=== PATIENT | male | born 1950 | race Caucasian/White ===

== ENCOUNTER 2018-09-09 08:37 | Inpatient (IN) | payer MEDICARE ==
[2018-09-09] VITALS (18 sets, daily range): BP systolic 101–163; BP diastolic 52–84; BMI 25.6
[~2018-09-09] VITALS: Ht 165.1 cm; Wt 65.9 kg
[2018-09-09] MEDS ORDERED: OMEPRAZOLE40 MG PO (08:57)
[2018-09-09] MEDS ORDERED: NORVASC5 MG PO (08:58)
[2018-09-09] MEDS ORDERED: VITAMIN B-121000 MCG PO (08:58)
[2018-09-09] MEDS ORDERED: GLYBURIDE5 M1 PO (08:58)
[2018-09-09] MEDS ORDERED: TRESIBA FL100 UNIT/1 SQ (08:59)
[2018-09-09] MEDS ORDERED: ACCUPRIL20 MG PO (08:59)
[2018-09-09] MEDS ORDERED: HCTZ25 MG PO (09:00)
[2018-09-09] MEDS ORDERED: BAYER CHEWABLE81 MG (09:00)
[2018-09-09] MEDS ORDERED: LIPITOR20 MG PO (09:00)
[2018-09-09] MEDS ORDERED: PLAVIX75 MG PO (09:00)
[2018-09-09] MEDS ORDERED: GLUCOPHAGE1000 MG PO (09:00)
[2018-09-09] MEDS ORDERED: VIAGRA100 MG PO (09:01)
[2018-09-09 09:43] LABS: MCH 29.6 pg (26.0-34.0); MCHC 32.7 g/dL (31.0-37.0); MCV 90.7 fL (80.0-100.0); MEAN PLATELET VOLUME 9.2 fL (7.4-10.4); RBC 2.16 10x6/uL (4.20-6.10); RDW 13.6 % (11.5-14.5); WBC 5.1 10x3/uL (4.8-10.8)
[2018-09-09 10:00] LABS: ALBUMIN 2.8 g/dL (3.4-5.0); ALKALINE PHOSPHATASE 73 U/L (46-116); ALT (SGPT) 19 U/L (10-68); BILIRUBIN - TOTAL 0.36 mg/dL (0.2-1.3); CALC OSMOLALITY 297 mosm/kg (275-300); CALCIUM 8.2 mg/dL (8.5-10.1); CHLORIDE - SERUM 103 mmol/L (98-107); CREATININE - SERUM 0.9 mg/dL (0.6-1.3); POTASSIUM - SERUM 4.3 mmol/L (3.5-5.1); PROTEIN - SERUM 5.4 g/dL (6.4-8.2); SODIUM 139 mmol/L (136-145); UREA NITROGEN 29 mg/dL (7-18); eGFR NON AFRICAN AMERICAN 89 mL/min (90-120)
[2018-09-09 10:01] LABS: GLUCOSE 359 mg/dL (74-106)
[2018-09-09 10:15] LABS: HEMATOCRIT 19.6 % (42.0-54.0); HEMOGLOBIN 6.4 g/dL (13.5-17.5); PLATELET COUNT 88 10x3/uL (130-400)
[2018-09-09 11:23] LABS: ANISOCYTOSIS OCC; HYPOCHROMASIA 1+; LYMPHOCYTES 5 % (15-50); MONOCYTES 4 % (2-11); NEUTROPHILS 87 % (40-80); PLATELET ESTIMATE DECREASED
--- NOTE | 2018-09-09 11:27 | NUR ---
PT ARRIVED TO UNIT AROUND 1100. CAME FROM ER. HAD CT SCAN BEFORE HE COME TO UNIT. LARGE AMOUNT OF RED BLOODY STOOL NOTED. PERICARE CARE AND CLEAN LINENS PROVIDED. CONNECTED TO TELEMETRY. BLOOD CONSENT SIGNED. VOICE AT BEDSIDE AT THIS TIME. WILL CONTINUE TO MONITOR.
--- NOTE | 2018-09-09 11:41 | NUR ---
1ST UNIT OF PRBC'S INFUSING AT THIS TIME. FAMILY AT BEDSIDE.
--- NOTE | 2018-09-09 12:50 | NUR ---
PT TRANSFERRED TO NUCLEAR MEDICINE FOR BLEEDING SCAN. NURSE ACCOMPANIED PT DUE TO BLOOD TRANSFUSION.
--- NOTE | 2018-09-09 14:10 | NUR ---
PT BACK IN ROOM. RE-CONNECTED TO [employer] INSTRUMENTS TUBE BENDER. CONTINUES ON ROOM AIR. WILL CONTINUE TO MONITOR.
--- NOTE | 2018-09-09 15:48 | NUR ---
BLOOD GLUCOSE 224. 8 UNITS OF HUMALOG GIVEN PER SLIDING SCALE. EXTRA BLANKET PROVIDED. PT DENIES OTHER NEEDS AT THIS TIME. WILL CONTINUE TO MONITOR.
--- NOTE | 2018-09-09 16:55 | NUR ---
CLEAR LIQUID TRAY DELIVERED. UP TO BEDSIDE COMMODE. LARGE AMOUNT OF MARROON RED STOOL NOTED. SECOND UNIT OF BLOOD ALMOST FINISHED. GO LITELY IN ROOM. PT INSTRUCTED TO DRINK MUCH HE CAN TO PREP FOR COLONOSCOPY.
--- NOTE | 2018-09-09 17:43 | NUR ---
3RD UNIT OF BLOOD INFUSING AT THIS TIME. RESTING COMFORTABLY. WILL CONTINUE TO MONITOR.
--- NOTE | 2018-09-09 17:58 | NUR ---
DR. MANN CALLED TO VERIFY INSULIN ORDERS. CONTINUE WITH HUMALOG AND DC HUMULIN REG.
--- NOTE | 2018-09-09 18:17 | NUR ---
CONSENT FORMS SIGNED FOR COLONOSCOPY. SPOUSE AT BEDSIDE. CONSENT FORMS PLACED IN CHART. SCD'S APPLIED TO LE PER ORDERS. RESTING COMFORTABLY. WILL CONTINUE TO MONITOR.
--- NOTE | 2018-09-09 18:47 | NUR ---
UP TO BEDSIDE COMMODE. SMALL AMOUNT OF MARROON/RED STOOL NOTED.
--- NOTE | 2018-09-09 19:15 | NUR ---
REPORT RECEIVED, INITIAL ASSESSMENT COMPLETE PER FLOW SHEET, PT AAOx4, ANSWERES ALL QUESTIONS AND ABLE TO MAKE NEEDS KNOWN, PT SUPINE IN BED, HOB ELEVATED, MOVES ALL EXTREMITIES WITH PURPOSE EQUALY BILAT, BILAT 20g PIV'S IN BILAT FA, PRBC INFUSING IN LEFT FA, PT PERIODICALY SINUS TACH WITH INCREASED MOVEMENT, RETURNS TO NSR WHEN RESTING, PVC'S NOTED, OTHER VSS, PT HAS GI PREP ON BEDSIDE TABLE, ASSISTING TO POOR GI PREP FOR PT INTO CUP, PT DENIES PAIN OR NEEDS AT THIS TIME, WILL CONTINUE TO MONITOR
--- NOTE | 2018-09-09 20:36 | NUR ---
PT UP OOB TO BEDSIDE COMMODE, 700 ML LIQUID BLOODY STOOL, PT AAOx4, ASSISTED BACK TO BED, LINENS CHANGED, VSS, WILL CONTINUE TO MONITOR
[2018-09-09 21:58] LABS: HEMATOCRIT 31.9 % (42.0-54.0); HEMOGLOBIN 10.7 g/dL (13.5-17.5)
[2018-09-09 22:01] LABS: INR 1.14 (0.85-1.17)
--- NOTE | 2018-09-09 23:00 | NUR ---
REASSESSMENT COMPLETE PER FLOW SHEET, NO ACUTE CHANGE NOTED, PT FINISHED GI PREP, DENIES PAIN OR NEEDS AT THIS TIME, VSS, WILL CONTINUE TO MONITOR
[2018-09-10] VITALS (20 sets, daily range): BP systolic 101–145; BP diastolic 34–96; BMI 27.6
--- NOTE | 2018-09-10 01:00 | NUR ---
PT UP TO BEDSIDE COMMODE, SMALL LIQUID BROWN BM WITH YELLOW VOID, PT DENIES PAIN OR NEEDS AT THIS TIME, COMPLETE LINEN CHANGE, VSS, WILL CONTINUE TO MONITOR
--- NOTE | 2018-09-10 03:00 | NUR ---
REASSESSMENT COMPLETE SEE FLOW SHEET, PT DENIES PAIN OR NEEDS, AAOx4 SLEEPING COMFORTABLY, MEDS INFUSING PER MAR/ORDERS, VSS, NPO PER ORDERS, WILL CONTINUE TO MONITOR
[2018-09-10 04:26] LABS: BASOPHILS 0.1 % (0-2); EOSINOPHILS 0.6 % (0-7); HEMOGLOBIN 10.1 g/dL (13.5-17.5); IMMATURE GRANULOCYTES 0.4 % (0-5); LYMPHOCYTES 19.5 % (15-50); MCH 30.1 pg (26.0-34.0); MCHC 33.7 g/dL (31.0-37.0); MCV 89.3 fL (80.0-100.0); MONOCYTES 8.4 % (2-11); PLATELET COUNT 78 10x3/uL (130-400); RDW 14.2 % (11.5-14.5)
[2018-09-10 04:40] LABS: RBC 3.36 10x6/uL (4.20-6.10); WBC 8.1 10x3/uL (4.8-10.8)
[2018-09-10 04:48] LABS: CALCIUM 7.6 mg/dL (8.5-10.1); CARBON DIOXIDE 28.5 mmol/L (21.0-32.0); CHLORIDE - SERUM 109 mmol/L (98-107); CREATININE - SERUM 0.8 mg/dL (0.6-1.3); SODIUM 145 mmol/L (136-145); eGFR NON AFRICAN AMERICAN > 90 mL/min (90-120)
[2018-09-10 04:49] LABS: CALC OSMOLALITY 285 mosm/kg (275-300); GLUCOSE 68 mg/dL (74-106); POTASSIUM - SERUM 3.4 mmol/L (3.5-5.1); UREA NITROGEN 11 mg/dL (7-18)
--- NOTE | 2018-09-10 05:00 | NUR ---
PT MORILLO SINCREASED CONCERNES ABOUT BLOOD SUGAR LEVELS DISCUSSED TX WITH PT WITH BEING NPO AND AND PROCEDURE TODAY, WILL CONTINUE TO MONITOR FSBG LEVELS, VSS, PT RESTING COMFORTABLY IN BED,
--- NOTE | 2018-09-10 05:15 | NUR ---
CALLED ICU, PASSWORD VERIFIED, UPDATE GIVEN, WOULD LIKE TO KNOW WHEN PT IS TO HAVE PROCEDURE, WILL NOTIFY ONCOMING RN ABOUT WANTING TO BE NOTIFIED, NO FURTHER QUESTIONS OR CONCERNS STATED AT THIS TIME, PT RESTING IN BED, VSS
--- NOTE | 2018-09-10 05:33 | NUR ---
PT STATED ERLIER IN SHIFT THAT WHEN HIS BLOOD SUGAR DROPS AROUND 60'S THAT HE IS DIFFICULT TO INCREASE BLOD GLUCOSE, WITH PENDING SURGERY TODAY AND FSBG @68 DISCUSSED WITH PT ABOUT CONTROL OF BLOOD GLUCOSE, PT NPO PER ORDERS, PT AGREES ON SC GLUCOSE CONTROL MED PER MAR, SEE MAR FOR FURTHER, PT AAOx4, VSS, WILL CONTINUE TO MONITOR
--- NOTE | 2018-09-10 07:00 | NUR ---
RECEIVED BEDSIDE REPORT ON PATIENT AND ASSUMED CARE. HEAD TO TOE ASSESSMENT COMPLETED. PATIENT RESTING QUIELTY IN BED. ALERT AND ORIENTED X 4. VSS.
--- NOTE | 2018-09-10 10:45 | NUR ---
DR. SPARKS IN ROOM, UPDATED AND EXAMINES PATIENT. PATIENTS AT BEDSIDE. VSS. ANSWERS QUESTIONS.
--- NOTE | 2018-09-10 11:26 | NUR ---
REASSESSMENT COMPLETE. PATIENT WATCHING TV, AT BEDSIDE, NO NEEDS AT THIS TIME. VSS. KCL INFUSION COMPLETED.
--- NOTE | 2018-09-10 13:29 | NUR ---
PREOP MEDS GIVEN PER MAR.
--- NOTE | 2018-09-10 15:07 | NUR ---
REASSESSMENT COMPLETED. GIVEN LEMON SWABS FOR MOUTH. VSS. WILL CONTINUE TO MONITOR.
--- NOTE | 2018-09-10 15:53 | NUR ---
GI LAB AT ROOM SETTING UP FOR COLONOSCOPY.
--- NOTE | 2018-09-10 16:53 | NUR ---
DR. JEFFERSON AT ROOM UPDATES DAUGHTER AND PATIENT ON PROCEDURE AND ANSWERS QUESTIONS. TO START REGULAR DIET AND TRANSFER TO FLOOR.
--- NOTE | 2018-09-10 17:24 | NUR ---
CALLED REPORT TO ADRYAN CABALLERO ON MED 3, WILL TRANSFER PATIENT TO ROOM 1213 ONCE DINNER IS COMPLETED.
--- NOTE | 2018-09-10 18:08 | NUR ---
PATIENT ATE 100% OF DINNER TRAY. TRANSPORTED TO ROOM 1213 VIA WHEELCHAIR. VSS.
--- NOTE | 2018-09-10 19:32 | NUR ---
THE PATIENT WAS LYING IN BED WHEN STAFF ENTERED HIS ROOM. BED IS IN THE LOW POSITION WITH SIDERAILS X2 AND CALL LIGHT WITHIN REACH. PATIENT WAS EDUCATED ON, AND DEMONSTRATED APPROPRIATE USE, OF A CALL LIGHT. THE PATIENT APPEARS COMFORTABLE WITH NO QUESTIONS OR CONCERNS AT THIS TIME.
[2018-09-11] VITALS: BP 127/51
--- NOTE | 2018-09-11 02:46 | NUR ---
THE PATIENT IS AWAKE AND TALKING TO STAFF. HE HAS NO QUESTIONS OR CONCERNS AT THIS TIME.
--- NOTE | 2018-09-11 03:17 | NUR ---
PATIENT WOKE AT 0209 WITH A FSBS OF 59. MILK, CRACKERS AND PEANUT BUTTER WERE GIVEN. FSBS AT 0317 WAS 191.
[2018-09-11 03:42] VITALS: BP 120/32; Ht 165.1 cm; Wt 65.9 kg
[2018-09-11 04:00] VITALS: BP 119/65
[2018-09-11 06:13] LABS: BASOPHILS 0.1 % (0-2); EOSINOPHILS 0.6 % (0-7); HEMATOCRIT 32.3 % (42.0-54.0); HEMOGLOBIN 10.5 g/dL (13.5-17.5); IMMATURE GRANULOCYTES 0.4 % (0-5); MCH 29.9 pg (26.0-34.0); MCHC 32.5 g/dL (31.0-37.0); MONOCYTES 6.1 % (2-11); NEUTROPHILS 82.8 % (40-80); RBC 3.51 10x6/uL (4.20-6.10); RDW 14.7 % (11.5-14.5); WBC 7.9 10x3/uL (4.8-10.8)
[2018-09-11 06:26] LABS: PLATELET COUNT 101 10x3/uL (130-400)
[2018-09-11 06:53] LABS: ALBUMIN 3.1 g/dL (3.4-5.0); ALKALINE PHOSPHATASE 92 U/L (46-116); CALCIUM 8.3 mg/dL (8.5-10.1); CARBON DIOXIDE 25.8 mmol/L (21.0-32.0); CHLORIDE - SERUM 105 mmol/L (98-107); CREATININE - SERUM 0.8 mg/dL (0.6-1.3); POTASSIUM - SERUM 3.6 mmol/L (3.5-5.1); PROTEIN - SERUM 6.2 g/dL (6.4-8.2); SODIUM 140 mmol/L (136-145); UREA NITROGEN 9 mg/dL (7-18); eGFR NON AFRICAN AMERICAN > 90 mL/min (90-120)
[2018-09-11 07:13] LABS: ALT (SGPT) 49 U/L (10-68); CALC OSMOLALITY 281 mosm/kg (275-300); GLUCOSE 177 mg/dL (74-106)
[2018-09-11 07:54] VITALS: BP 119/65
--- NOTE | 2018-09-11 08:00 | NUR ---
PT AAOX4 REQUESTING SOME UNSWEET TEA MADE AND BROUGHT TO PT AT THIS TIME, NO OTHER NEEDS EXPRESSED WILL CONTINUE TO MONITOR
[2018-09-11 12:23] VITALS: BP 151/69
[2018-09-11] MEDS ORDERED: ASPIRIN325 MG PO (13:28)
--- NOTE | 2018-09-11 14:31 | MORECARE ---
CASE MANAGEMENT DISCHARGE SUMMARY PATIENT: JS GONZALEZ UNIT: [id number] ADM DATE: 09/09/18 AGE: 68 : 51 SEX: M ROOM/BED: D.1213 AUTHOR: BHAVNA SINGH PHYSICIAN: REFERRING PHYSICIAN: BONITA MANN MD DATE OF SERVICE: 09/11/18 Discharge Plan Patient Name: JS GONZALEZ [facility] [facility] 1950 Planned Disposition: Home Anticipated Discharge Date: 09/11/18 Discharge Date: Expected LOS: 2 Initial Reviewer: [email or web address] Initial Review Date: 09/11/2018 Generated: 09/11/18 3:31 pm DCPIA - Discharge Planning Initial Assessment Updated by [email or web address]: Opal Olivares on 09/11/18 2:29 pm * Is the patient Alert and Oriented? Yes * How many steps to enter\exit or inside your home? 4w/rail * PCP Dr. Ivan Irene * Pharmacy [facility] [address] * Preadmission Environment Home with Family * ADLs Independent * Equipment Glucometer * List name and contact numbers for known caregivers / representatives who currently or will assist patient after discharge: Tammie Gonzalez, spouse, * Verbal permission to speak to the caregivers and representatives has been obtained from the patient. Yes * Community resources currently utilized None * Additional services required to return to the preadmission environment? No * Can the patient safely return to the preadmission environment? Yes * Has this patient been hospitalized within the prior 30 days at any hospital? No Patient Name: JS GONZALEZ Page [id number] at 1431 All edits/amendments must be made on the electronic document DICTATION DATE: 09/11/18 143 ELECTRICAL & INSTRUMENTATION SUPERVISOR: AVE 09/11/18 143 RPT#: [id number] DC DATE: STATUS: ADM IN [facility] [address] [place] [address] END OF REPORT
--- NOTE | 2018-09-11 14:42 | MORECARE ---
CASE MANAGEMENT DISCHARGE SUMMARY PATIENT: JS GONZALEZ UNIT: [id number] ADM DATE: 09/09/18 AGE: 68 : 51 SEX: M ROOM/BED: D.1213 AUTHOR: FRANCISCO,DOC PHYSICIAN: REFERRING PHYSICIAN: BONITA MANN MD DATE OF SERVICE: 09/11/18 Discharge Plan Patient Name: JS GONZALEZ Facility: [facility]:[place] : 1950 Planned Disposition: Home Anticipated Discharge Date: 09/11/18 Discharge Date: Expected LOS: 2 Initial Reviewer: [email or web address] Initial Review Date: 09/11/2018 Generated: 09/11/18 3:42 pm Comments DCP- Discharge Planning Updated by [email or web address]: Opal Olivares on 09/11/18 1:[address] Patient Name: JS GONZALEZ Admission Status: ER Accout number: [id number] Admission Date: 09-09-2018 : 1950 Admission Diagnosis:GASTROINTESTINAL HEMORRHAGE, UNSPECIFIED Attending: BONITA MANN Current LOS: 2 Anticipated DC Date: 09-11-2018 Planned Disposition: Home Primary Insurance: [employer] CHOICE PPO MCR ADVANT Discharge Planning Comments: CM met with patient about discharge planning / needs. Patient states he plans to discharge to home where he lives with his . States home environment is safe. Denies need for home health or other discharge planning needs at this time. States his will transport him home after she picks up their dog's medicine from [facility]. CM explained and served DC [facility]. CM will continue to follow and assist as needed with discharge planning / needs. Glassware Defect Repairer: Opal Olivares DCPIA - Discharge Planning Initial Assessment Updated by [email or web address]: Opal Olivares on 09/11/18 2:29 pm * Is the patient Alert and Oriented? Yes * How many steps to enter\exit or inside your home? 4w/rail * PCP Dr. Ivan Irene * Pharmacy [facility] [place] [address] * Preadmission Environment Home with Family * ADLs Independent * Equipment Glucometer * List name and contact numbers for known caregivers / representatives who currently or will assist patient after discharge: Tammie Gonzalez, spouse, * Verbal permission to speak to the caregivers and representatives has been obtained from the patient. Yes * Community resources currently utilized None * Additional services required to return to the preadmission environment? No * Can the patient safely return to the preadmission environment? Yes * Has this patient been hospitalized within the prior 30 days at any hospital? No Coverage Notice Reviewer: [email or web address] Marco A HallOpalrichy Olivares Notice Issued Date-Time: 09/11/2018 14:31 Notice Type: IM Discharge Notice Notice Delivered To: Patient Relationship to Patient: Self Jewelry Sales Associate Name: Delivery Method: HAND - Hand Delivered Giovanna Days: Prior Verbal Notification: Recipient Understood Notice: Yes Recipient Signature: Yes Med Rec Note Co-signed by Attending: Coverage Notice Comment: Last DP export: 09/11/18 1:31 pm Patient Name: JS GOZNALEZ Page [id number] at 1442 All edits/amendments must be made on the electronic document DICTATION DATE: 09/11/181441 FIRE PROTECTION EQUIPMENT TECHNICIAN: AVE 09/11/18 1442 RPT#: [id number] DC DATE: STATUS: ADM IN [facility] [address] [place] [address] END OF REPORT
--- NOTE | 2018-09-11 16:44 | NUR ---
IV DC WITH CATH INTACT, DC INSTRUCTIONS GIVEN FAMILY AT BEDSIDE PT VERABLIZES UNDERSTANDING, LEAVING VIA WHEELCHAIR VIA HOSPITAL STAFF VIA PRIVATE VECHILE IN STABLE CONDITION
--- NOTE | 2018-09-12 11:23 | MORECARE ---
CASE MANAGEMENT DISCHARGE SUMMARY PATIENT: JS GONZALEZ UNIT: [id number] ADM DATE: 09/09/18 AGE: 68 : 51 SEX: M ROOM/BED: D.1213 AUTHOR: FRANCISCO,DOC PHYSICIAN: REFERRING PHYSICIAN: BONITA MANN MD DATE OF SERVICE: 09/12/18 Discharge Plan Patient Name: JS GONZALEZ Facility: [facility]:[place] : 1950 Planned Disposition: Home Anticipated Discharge Date: 09/11/18 Discharge Date: 09/11/2018 Expected LOS: 2 Initial Reviewer: [email or web address] Initial Review Date: 09/11/2018 Generated: 09/12/18 12:23 pm Comments DCP- Discharge Planning Updated by [email or web address]: Opal Olivares on 09/11/18 1:[address] Patient Name: JS GONZALEZ Admission Status: ER Accout number: [id number] Admission Date: 09-09-2018 : 1950 Admission Diagnosis:GASTROINTESTINAL HEMORRHAGE, UNSPECIFIED Attending: BONITA MANN Current LOS: 2 Anticipated DC Date: 09-11-2018 Planned Disposition: Home Primary Insurance: [employer] CHOICE PPO MCR ADVANT Discharge Planning Comments: CM met with patient about discharge planning / needs. Patient states he plans to discharge to home where he lives with his . States home environment is safe. Denies need for home health or other discharge planning needs at this time. States his will transport him home after she picks up their dog's medicine from [facility]. CM explained and served DC [facility]. CM will continue to follow and assist as needed with discharge planning / needs. Clinical Evaluator: Opal Olivares DCPIA - Discharge Planning Initial Assessment Updated by [id number]: Opal Olivares on 09/11/18 2:29 pm * Is the patient Alert and Oriented? Yes * How many steps to enter\exit or inside your home? 4w/rail * PCP Dr. Ivan Irene * Pharmacy [facility] [address] * Preadmission Environment Home with Family * ADLs Independent * Equipment Glucometer * List name and contact numbers for known caregivers / representatives who currently or will assist patient after discharge: Tammie Gonzalez, spouse, * Verbal permission to speak to the caregivers and representatives has been obtained from the patient. Yes * Community resources currently utilized None * Additional services required to return to the preadmission environment? No * Can the patient safely return to the preadmission environment? Yes * Has this patient been hospitalized within the prior 30 days at any hospital? No Coverage Notice Reviewer: [email or web address] Marco A Olivares Notice Issued Date-Time: 09/11/2018 14:31 Notice Type: IM Discharge Notice Notice Delivered To: Patient Relationship to Patient: Self Textile Engineer Name: Delivery Method: HAND - Hand Delivered Giovanna Days: Prior Verbal Notification: Recipient Understood Notice: Yes Recipient Signature: Yes Med Rec Note Co-signed by Attending: Coverage Notice Comment: Last DP export: 09/11/18 1:42 pm Patient Name: JS GONZALEZ Page [id number] at 1123 All edits/amendments must be made on the electronic document DICTATION DATE: 09/12/181121 GIN OPERATOR: AVE 09/12/18 112 RPT#: [id number] DC DATE:09/11/18 STATUS: DIS IN [facility] [address] [place] [address] END OF REPORT
== END 2018-09-11 16:48 | disposition home or self-care (01) | DRG 393 ==
LOC: D.ER 08:37 → D.EDHOLD 09:46 → D.ICU 09:46 → D.M3 09-10 18:11
PROVIDERS: Family Medicine; Internal Medicine Gastroenterology; ADMIT Internal Medicine Nephrology; ATTEND Internal Medicine Nephrology
PROC: 0DBM8ZZ Excision of Descending Colon, Via Natural or Artificial Opening Endoscopic (ICD-10-PCS; principal; 2018-09-10 15:30)
DX: K64.1 Second degree hemorrhoids (principal); K57.91 Diverticulosis of intestine, part unspecified, without perforation or abscess with bleeding; D62 Acute posthemorrhagic anemia; I10 Essential (primary) hypertension; E11.9 Type 2 diabetes mellitus without complications; I25.10 Atherosclerotic heart disease of native coronary artery without angina pectoris; K63.5 Polyp of colon

== ENCOUNTER 2018-11-21 20:47 | Inpatient (IN) | payer MEDICARE, MEDICAID ==
[~2018-11-21] VITALS: Ht 165.1 cm; Wt 70.8 kg
[~2018-11-21 20:47] MED LIST: ACCUPRIL20 MG PO; ASPIRIN325 MG PO; BAYER CHEWABLE81 MG; GLUCOPHAGE1000 MG PO; GLYBURIDE5 M1 PO; HCTZ25 MG PO; LIPITOR20 MG PO; NORVASC5 MG PO; OMEPRAZOLE40 MG PO; PLAVIX75 MG PO; TRESIBA FL100 UNIT/1 SQ; VIAGRA100 MG PO; VITAMIN B-121000 MCG PO
--- NOTE | 2018-11-21 21:34 | NUR ---
PT GIVEN URINAL.
[2018-11-21 21:54] LABS: BASOPHILS 0.2 % (0-2); EOSINOPHILS 0.9 % (0-7); HEMATOCRIT 24.9 % (42.0-54.0); HEMOGLOBIN 8.3 g/dL (13.5-17.5); IMMATURE GRANULOCYTES 0.4 % (0-5); LYMPHOCYTES 8.6 % (15-50); MCH 28.5 pg (26.0-34.0); MCHC 33.3 g/dL (31.0-37.0); MCV 85.6 fL (80.0-100.0); MEAN PLATELET VOLUME 9.1 fL (7.4-10.4); NEUTROPHILS 82.9 % (40-80); RBC 2.91 10x6/uL (4.20-6.10); RDW 13.9 % (11.5-14.5); WBC 5.6 10x3/uL (4.8-10.8)
[2018-11-21 21:57] LABS: PLATELET COUNT 148 10x3/uL (130-400)
[2018-11-21 22:00] VITALS: BP 157/58
[2018-11-21 22:08] LABS: APPEARANCE CLEAR (CLEAR); BILIRUBIN NEGATIVE (NEGATIVE); COLOR YELLOW (YELLOW); GLUCOSE 250 mg/dL (NEGATIVE); KETONE NEGATIVE (NEGATIVE); NITRITE NEGATIVE (NEGATIVE); PROTEIN NEGATIVE (NEGATIVE); SPECIFIC GRAVITY 1.015 (1.005-1.020); UROBILINOGEN NORMAL (NORMAL)
[2018-11-21 22:15] LABS: ALBUMIN 3.3 g/dL (3.4-5.0); ALKALINE PHOSPHATASE 101 U/L (46-116); ALT (SGPT) 19 U/L (10-68); BILIRUBIN - TOTAL 0.17 mg/dL (0.2-1.3); CALC OSMOLALITY 274 mosm/kg (275-300); CALCIUM 8.4 mg/dL (8.5-10.1); CARBON DIOXIDE 27.6 mmol/L (21.0-32.0); CHLORIDE - SERUM 94 mmol/L (98-107); CREATININE - SERUM 0.9 mg/dL (0.6-1.3); GLUCOSE 311 mg/dL (74-106); POTASSIUM - SERUM 4.2 mmol/L (3.5-5.1); PROTEIN - SERUM 6.1 g/dL (6.4-8.2); SODIUM 129 mmol/L (136-145); UREA NITROGEN 24 mg/dL (7-18); eGFR NON AFRICAN AMERICAN 89 mL/min (90-120)
[2018-11-21 22:22] LABS: AMYLASE - SERUM 41 U/L (25-115); LIPASE 101 U/L (73-393)
--- NOTE | 2018-11-21 22:41 | NUR ---
PT GIVEN WARM BLANKETS. DENIES ANY FURTHER NEEDS AT THIS TIME. RR EVEN AND UNLABORED, VSS, NO DISTRESS NOTED. AT BEDSIDE. WILL CONTINUE TO MONITOR.
[2018-11-21 23:00] VITALS: BP 151/54
--- NOTE | 2018-11-21 23:22 | NUR ---
PT ASSISTED IN USING CALL LIGHT TO TURN ON TV. DENIES ANY FURTHER NEEDS. WILL CONTINUE TO MONITOR.
[2018-11-22] VITALS (17 sets, daily range): BP systolic 112–160; BP diastolic 37–99; Ht 165.1 cm; Wt 70.8 kg
--- NOTE | 2018-11-22 01:50 | NUR ---
Patient received from ER to CV, positioned in bed and connected to monitor. Patient AO x4, calm and cooperative. S1/S2 noted NSR on telemetry with HR 94, rythmic and regular. Breathing is even/unlabored on room air with O2 sat 100%, lung sounds clear bilateral upper and mid with diminished lower. Abdomen is round/soft with bowel sounds active x4, non-tender. Ambulates self to bathroom without assist, concentrated yellow urine noted. All pulses palpable with cap refill < 3 sec, skin cool/dry. Denies pain or other needs at this time, see flowsheet for details. Dr Tran contacted by ER, accepted admission and will see in AM. All VSS and will continue to monitor.
[2018-11-22 04:21] LABS: BASOPHILS 0.2 % (0-2); EOSINOPHILS 0.5 % (0-7); HEMATOCRIT 22.3 % (42.0-54.0); HEMOGLOBIN 7.6 g/dL (13.5-17.5); IMMATURE GRANULOCYTES 0.2 % (0-5); LYMPHOCYTES 17.4 % (15-50); MCHC 34.1 g/dL (31.0-37.0); MCV 85.1 fL (80.0-100.0); MEAN PLATELET VOLUME 9.3 fL (7.4-10.4); MONOCYTES 10.1 % (2-11); NEUTROPHILS 71.6 % (40-80); PLATELET COUNT 137 10x3/uL (130-400); RBC 2.62 10x6/uL (4.20-6.10); RDW 14.1 % (11.5-14.5); WBC 4.3 10x3/uL (4.8-10.8)
[2018-11-22 04:44] LABS: ALBUMIN 3.1 g/dL (3.4-5.0); ALKALINE PHOSPHATASE 86 U/L (46-116); ALT (SGPT) 19 U/L (10-68); BILIRUBIN - TOTAL 0.24 mg/dL (0.2-1.3); CALC OSMOLALITY 275 mosm/kg (275-300); CALCIUM 8.2 mg/dL (8.5-10.1); CARBON DIOXIDE 29.3 mmol/L (21.0-32.0); CHLORIDE - SERUM 97 mmol/L (98-107); CREATININE - SERUM 0.8 mg/dL (0.6-1.3); MAGNESIUM - SERUM 1.5 mg/dL (1.8-2.4); PHOSPHOROUS 3.1 mg/dL (2.5-4.9); POTASSIUM - SERUM 4.2 mmol/L (3.5-5.1); PROTEIN - SERUM 5.7 g/dL (6.4-8.2); SODIUM 132 mmol/L (136-145); UREA NITROGEN 20 mg/dL (7-18); eGFR NON AFRICAN AMERICAN > 90 mL/min (90-120)
[2018-11-22 04:48] LABS: APTT 25.5 SECONDS (22.8-39.4); INR 1.12 (0.85-1.17); PROTIME 13.9 SECONDS (11.6-15.0)
[2018-11-22 04:50] LABS: GLUCOSE 245 mg/dL (74-106)
--- NOTE | 2018-11-22 07:51 | NUR ---
REPORT RECIEVED FROM THE OFF GOING RN. SEE ASSESSMENT IN THE PTS FLOW SHEET. PT A&O X4. PT LYING IN BED. VSS. PT DENIES PAIN. I ASKED HIM ABOUT HIS HX AND MEDS HE TAKES. "I TAKE ASPRIN DAILY AND USED TO TAKE PLAVIX FOR STENTS IN MY LEGS. I USED TO TAKE 325MG OF ASA BUT IT STARTED HURTING MY STOMACH SO I DECREASED TO 81MG. I HAVNT TAKEN MY PLAVIX SINCE 08/[address] PT DENIES TAKING NSAIDS. PT DENIES ABD PAIN AT THIS TIME. LAST BM WAS AT HIS HOUSE PER THE PT. "IT WAS CLOTTY AND ALYX COLOR.". PT STATED THAT HE WAS IN THE HOSPTIAL A COUPLE MONTHS AGO WITH A GIB. VSS. CALL LIGHT IN REACH. WILL CONT POC.
--- NOTE | 2018-11-22 11:29 | NUR ---
DR GRANADOS AT THE PTS BESIDE. N.O TO TRANSFUSE 2 UNITS OF PRBC'S.
--- NOTE | 2018-11-22 11:40 | NUR ---
PT RECIEVED. TO UNIT AT BEDSIDE GIVEN UPDATE. PT DENIES NEEDS VSS BLOOD NOT READY AT THIS TIME. WILL CONTINUE TOMONITOR
--- NOTE | 2018-11-22 11:47 | NUR ---
REPORT CALLED TO KHANH CABALLERO. BEING TRANSFERED TO 2300.
[2018-11-22 12:33] LABS: HEMATOCRIT 24.4 % (42.0-54.0); HEMOGLOBIN 8.2 g/dL (13.5-17.5)
--- NOTE | 2018-11-22 13:07 | NUR ---
DR STONER AT BEDSIDE UPDATE GIVEN NEW ORDERS RECIEVED. VSS. NO NEW CHANGES NOT AT BEDSIDE ATTEMPT TO CALL 3 TIMES TO VOICE ANY CONCERNS WHILE DR STONER WAS HERE. DID NOT ANSWER. PT GIVEN UDPATE. STATED OKAY.
--- NOTE | 2018-11-22 13:11 | NUR ---
BLOOD BANK CALLED. BLOOD WILL BE READY IN 10 MINUTES. WILL REASSESS
--- NOTE | 2018-11-22 15:41 | NUR ---
PT CAROLA CALLED LEFT VOICE MAIL PHONE WITH NO RING, APPEARED TO BE OFF STATED NEW ROOM NUMBER. PT STATED OKAY. WILL CONTINUE TO MONITOR
--- NOTE | 2018-11-22 16:18 | NUR ---
PATIENT ARRIVED TO THE FLOOR VIA BED FROM ICU, IV POLE WITH BLOOD INFUSING TO THE LEFT LOWER ARM. PATIENT DENIES ANY NEEDS AT THIS TIME
[2018-11-22 17:08] LABS: HEMATOCRIT 30.3 % (42.0-54.0); HEMOGLOBIN 9.9 g/dL (13.5-17.5)
--- NOTE | 2018-11-22 19:24 | NUR ---
EVENING ROUNDS MADE. PT LAYING IN BED RESTING. DENIES PAIN AT THIS TIME. A/O X 4. FAMILY AT BEDSIDE. NO FURTHER CONCERNS AT THIS TIME. BED LOWERED AND LOCKED. CL IN [facility]. WILL CTM.
--- NOTE | 2018-11-22 20:56 | NUR ---
VITALS STABLE. PT TOOK MEDS WITHOUT DIFFICULTY. DENIES PAIN AT THIS TIME. SUPP GIVEN. BS 160, TREATED WITH 2 UNITS OF INSULIN. FULL LIQUID SNACK PROVIDED. NO FURTHER CONCERNS AT THIS TIME. BED LOWERED AND LOCKED. CL IN REACH. WILL CTM.
[2018-11-22 23:54] LABS: HEMATOCRIT 31.1 % (42.0-54.0); HEMOGLOBIN 10.8 g/dL (13.5-17.5)
[2018-11-23 01:07] VITALS: BP 159/67
[2018-11-23 06:11] VITALS: BP 132/60
[2018-11-23 07:01] LABS: HEMOGLOBIN 10.5 g/dL (13.5-17.5)
[2018-11-23 07:29] LABS: ALBUMIN 3.1 g/dL (3.4-5.0); ALKALINE PHOSPHATASE 78 U/L (46-116); ALT (SGPT) 19 U/L (10-68); CALC OSMOLALITY 281 mosm/kg (275-300); CALCIUM 8.1 mg/dL (8.5-10.1); CARBON DIOXIDE 28.2 mmol/L (21.0-32.0); CHLORIDE - SERUM 106 mmol/L (98-107); CREATININE - SERUM 0.7 mg/dL (0.6-1.3); GLUCOSE 190 mg/dL (74-106); MAGNESIUM - SERUM 1.8 mg/dL (1.8-2.4); PHOSPHOROUS 3.2 mg/dL (2.5-4.9); POTASSIUM - SERUM 3.8 mmol/L (3.5-5.1); PROTEIN - SERUM 5.8 g/dL (6.4-8.2); SODIUM 140 mmol/L (136-145); UREA NITROGEN 8 mg/dL (7-18); eGFR NON AFRICAN AMERICAN > 90 mL/min (90-120)
--- NOTE | 2018-11-23 07:33 | NUR ---
REPORT RECEIVED. WILL CONTINUE WITH POC. PT CURRENTLY LYING SUPINE. CALL LIGHT W/I REACH. PT IS AAO AND UP AD RADHA. RR EVEN AND UNLABORED ON RA. NS INFUSING @100ML/HR AND PROTONIX @10ML/HR VIA L.WRIST PIV. PT DENIES ANY NEEDS AT THIS TIME. NO S/S OF DISTRESS NOTED. WILL CTM.
[2018-11-23 07:48] VITALS: BP 156/67
[2018-11-23] MEDS ORDERED: ANUSOL-HC25 MG RC (10:35)
[2018-11-23] MEDS ORDERED: ANUSOL-HC 2.5%30 GM TOPICAL (10:35)
[2018-11-23 11:18] VITALS: BP 154/67
--- NOTE | 2018-11-23 13:29 | NUR ---
PT DISCHARGED HOME VIA WHEELCHAIR WITH FAMILY. PIV REMOVED WITH CATHETER TIP FULLY INTACT. PT SIGNED PROPER DISCHARGE INSTRUCTION AND REMOVED ALL VALUABLES FROM THE ROOM.
== END 2018-11-23 13:29 | disposition home or self-care (01) | DRG 393 ==
LOC: D.ER 20:47 → D.M3 11-22 00:22 → D.CVICU 11-22 00:22 → D.ICU 11-22 12:40 → D.M3 11-22 16:11
PROVIDERS: Family Medicine; ADMIT Family Medicine; ATTEND Family Medicine
DX: K64.9 Unspecified hemorrhoids (principal); K57.91 Diverticulosis of intestine, part unspecified, without perforation or abscess with bleeding; I13.0 Hypertensive heart and chronic kidney disease with heart failure and stage 1 through stage 4 chronic kidney disease, or unspecified chronic kidney disease; E11.9 Type 2 diabetes mellitus without complications; E78.5 Hyperlipidemia, unspecified; I50.9 Heart failure, unspecified; D50.9 Iron deficiency anemia, unspecified; E11.22 Type 2 diabetes mellitus with diabetic chronic kidney disease; N18.9 Chronic kidney disease, unspecified

== ENCOUNTER 2019-10-14 17:06 | Emergency (ER) | payer SELFPAY ==
[~2019-10-14] VITALS: Ht 165.1 cm; Wt 68.2 kg
[~2019-10-14 17:06] MED LIST changes: +ANUSOL-HC 2.5%30 GM TOPICAL; +ANUSOL-HC25 MG RC
[2019-10-14 17:07] VITALS: Ht 165.1 cm; Wt 68.2 kg
[2019-10-14 18:08] LABS: BASOPHILS 0.2 % (0-2); EOSINOPHILS 0.7 % (0-7); HEMATOCRIT 31.6 % (42.0-54.0); HEMOGLOBIN 10.3 g/dL (13.5-17.5); IMMATURE GRANULOCYTES 0.4 % (0-5); LYMPHOCYTES 15.2 % (15-50); MCH 28.8 pg (26.0-34.0); MCHC 32.6 g/dL (31.0-37.0); MCV 88.3 fL (80.0-100.0); MEAN PLATELET VOLUME 9.2 fL (7.4-10.4); MONOCYTES 9.8 % (2-11); NEUTROPHILS 73.7 % (40-80); PLATELET COUNT 142 10x3/uL (130-400); RBC 3.58 10x6/uL (4.20-6.10); RDW 14.6 % (11.5-14.5); WBC 5.5 10x3/uL (4.8-10.8)
[2019-10-14 18:18] LABS: ANION GAP 14.4 mmol/L (8-16); CALCIUM 8.5 mg/dL (8.5-10.1); CARBON DIOXIDE 24.5 mmol/L (21.0-32.0); CREATININE - SERUM 1.1 mg/dL (0.6-1.3); POTASSIUM - SERUM 3.9 mmol/L (3.5-5.1)
[2019-10-14 18:26] LABS: ALBUMIN 3.4 g/dL (3.4-5.0); BILIRUBIN - TOTAL 0.28 mg/dL (0.2-1.3); PROTEIN - SERUM 6.2 g/dL (6.4-8.2)
[2019-10-14 18:30] LABS: APTT 24.6 SECONDS (22.8-39.4); INR 1.04 (0.85-1.17); PROTIME 13.6 SECONDS (11.6-15.0)
[2019-10-14 18:54] VITALS: BP 119/50
== END 2019-10-14 18:54 | disposition home or self-care (01) ==
LOC: D.ER 17:06
PROVIDERS: Family Medicine
DX: K64.8 Other hemorrhoids (principal); K62.5 Hemorrhage of anus and rectum; E11.40 Type 2 diabetes mellitus with diabetic neuropathy, unspecified; J44.9 Chronic obstructive pulmonary disease, unspecified; I10 Essential (primary) hypertension; Z79.84 Long term (current) use of oral hypoglycemic drugs